=== PATIENT | female | born 1960 | race Caucasian/White ===

== ENCOUNTER 2021-03-24 05:46 | Day surgery (SDC) | payer OTHER ==
[~2021-03-24] VITALS: Ht 162.6 cm; Wt 97.7 kg
[2021-03-24] MEDS ORDERED: fentaNYL PF VIAL 100 MCG/2 ML VIAL IVP PRN ×2 (06:00)
[2021-03-24] MEDS ORDERED: PROCHLORPERAZINE 10 MG/2 ML VIAL. IVP PRN (06:00)
[2021-03-24] MEDS ORDERED: MORPHINE SULFATE 2 MG/ML INJ. IVP PRN (06:00)
[2021-03-24] MEDS ORDERED: IV RINGERS,LACTATED 1000ML 1,000 ML IV SCH (06:00)
[2021-03-24] MEDS ORDERED: HYDROmorphone 2 MG/ML INJ. IVP PRN (06:00)
[2021-03-24] MEDS ORDERED: MELA10TA2 PO (06:11)
[2021-03-24] MEDS ORDERED: PRAM1TAB PO (06:11)
[2021-03-24] MEDS ORDERED: fentaNYL PF VIAL 100 MCG/2 ML VIAL ONE ×2 (06:44→08:11)
[2021-03-24] MEDS ORDERED: PROPOFOL 10 MG/ML (20ML) VIAL. IV ONE (06:44)
[2021-03-24] MEDS ORDERED: SUCCINYLCHOLINE 200 MG/10 ML VIAL. ONE (06:46)
--- NOTE | 2021-03-24 07:14 | PDOC1 ---
History and Physical Date of Admission Date of Admission DATE: 03/24/21 TIME: 07:14 Identification/Chief Complaint Chief Complaint Bilateral medial foot pain Source Source: Patient History of Present Illness History of Present Illness Ms Mitchell is a 61-year-old female with no significant past medical history who comes to outpatient surgery for painful bilateral bunions bothering her for over a year. There is bilateral medial first MTP joints. 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 She is on her feet all day. Outpatient therapy has not helped and she comes in for definitive surgical treatment today. She is in no recent sick contacts or travel. Is fully vaccinated against COVID- 19 with the maternal vaccine and had a booster with Sun-eee vaccine recently. Past Medical History Cardiovascular: No pertinent hx Past Surgical History Past Surgical History Uterine ablation 2014. Right breast biopsy Family History Family History reviewed Family History: No Significant Social History Smoke: No ALCOHOL: none Drugs: None Current Medications Current Medications Current Medications Fentanyl Citrate (Fentanyl 2ml Vial) 25 mcg PRN Q5MIN PRN IVP MILD PAIN 1-3; Start 03/24/21 at 06:00; Stop 03/25/21 at 05:59 Fentanyl Citrate (Fentanyl 2ml Vial) 50 mcg PRN Q5MIN PRN IVP MODERATE PAIN 4- 6; Start 03/24/21 at 06:00; Stop 03/25/21 at 05:59 Morphine Sulfate (Morphine Sulfate) 1 mg PRN Q10MIN PRN IVP SEVERE PAIN 7-10; Start 03/24/21 at 06:00; Stop 03/25/21 at 05:59 Ringer's Solution 1,000 ml @ 30 mls/hr Q24H IV Last administered on 03/24/21at 06:31; Start 03/24/21 at 06:00; Stop 03/24/21 at 17:59 Hydromorphone HCl (Dilaudid) 0.5 mg PRN Q10MIN PRN IVP SEVERE PAIN 7-10, 2nd CHOICE; Start 03/24/21 at 06:00; Stop 03/25/21 at 05:59 Prochlorperazine Edisylate (Compazine) 5 mg PACU PRN PRN IVP NAUSEA, MRX1; Start 03/24/21 at 06:00; Stop 03/25/21 at 05:59 Cefazolin Sodium/ Dextrose 50 ml @ 100 mls/hr 1X PREOP PRN IV PRIOR TO PROCEDURE; Start 03/24/21 at 06:00; Stop 03/24/21 at 18:00 Propofol (Diprivan) 200 mg STK-MED ONCE IV ; Start 03/24/21 at 06:44; Stop 03/24/21 at 06:45; Status DC Fentanyl Citrate (Fentanyl 2ml Vial) 100 mcg STK-MED ONCE .ROUTE ; Start 03/24/21 at 06:44; Stop 03/24/21 at 06:45; Status DC Succinylcholine Chloride (Anectine) 200 mg STK-MED ONCE .ROUTE ; Start 03/24/21 at 06:46; Stop 03/24/21 at 06:46; Status DC Active Scripts Active Reported Melatonin 10 Mg Tab.mphase 1 Tab PO QHS 30 Days Pramipexole Dihydrochloride (Pramipexole Di-Hcl) 1 Mg Tablet 1 Mg PO DAILY Allergies Allergies: Coded Allergies: No Known Drug Allergies (Unverified , 03/19/21) ROS General: No: Chills, Night Sweats, Fatigue, Malaise, Appetite, Other PSYCHOLOGICAL ROS: No: Anxiety, Behavioral Disorder, Concentration difficultie, Decreased libido, Depression, Disorientation, Hallucinations, Hostility, Irritablity, Memory difficulties, Mood Swings, Obsessive thoughts, Physical abuse, Sexual abuse, Sleep disturbances, Suicidal ideation, Other Eyes: No Blurry vision, No Decreased vision, No Double vision, No Dry eyes, No Excessive tearing, No Eye Pain, No Itchy Eyes, No Loss of vision, No Photophobia, No Scotomata, No Uses contacts, No Uses glasses, No Other HEENT: No: Heacaches, Visual Changes, Hearing change, Nasal congestion, Nasal discharge, Oral lesions, Sinus pain, Sore Throat, Epistaxis, Sneezing, Snoring, Tinnitus, Vertigo, Vocal changes, Other ALLERGY AND IMMUNOLOGY: No: Hives, Insect Bite Sensitivity, Itchy/Watery Eyes, Nasal Congestion, Post Nasal Drip, Seasonal Allergies, Other Hematological and Lymphatic: No: Bleeding Problems, Blood Clots, Blood Transfusions, Brusing, Night Sweats, Pallor, Swollen Lymph Nodes, Other ENDOCRINE: No: Breast Changes, Galactorrhea, Hair Pattern Changes, Hot Flashes, Malaise/lethargy, Mood Swings, Palpitations, Polydipsia/polyuria, Skin Changes, Temperature Intolerance, Unexpected Weight Changes, Other Breast: No New/Changing Breast Lumps, No Nipple changes, No Nipple discharge, No Other Respiratory: No: Cough, Hemoptysis, Orthopnea, Pleuritic Pain, Shortness of breath, SOB with excertion, Sputum Changes, Stridor, Tachypnea, Wheezing, Other Cardiovascular: No Chest Pain, No Palpitations, No Orthopnea, No Paroxysmal Noc. Dyspnea, No Edema, No Lt Headedness, No Other Gastrointestinal: No Nausea, No Vomiting, No Abdominal Pain, No Diarrhea, No Constipation, No Melena, No Hematochezia, No Other Genitourinary: No Dysuria, No Frequency, No Incontinence, No Hematuria, No Retention, No Discharge, No Urgency, No Pain, No Flank Pain, No Other, No , No , No , No , No , No , No Musculoskeletal: Yes Gait Disturbance, Yes Joint Pain, Yes Joint Stiffness; No Joint Swelling, No Muscle Pain, No Muscular Weakness, No Pain In:, No Swelling In:, No Other Neurological: No Behavorial Changes, No Bowel/Bladder ControlChng, No Confusion, No Dizziness, No Gait Disturbance, No Headaches, No Impaired Coord/balance, No Memory Loss, No Numbness/Tingling, No Seizures, No Speech Problems, No Tremors, No Visual Changes, No Weakness, No Other Skin: No Dry Skin, No Eczema, No Hair Changes, No Lumps, No Mole Changes, No Mottling, No Nail Changes, No Pruritus, No Rash, No Skin Lesion Changes, No Other, No Acne Physical Exam General: Alert, Oriented X3, Cooperative, No acute distress HEENT: Atraumatic, PERRLA, EOMI, Mucous membr. moist/pink Lungs: Clear to auscultation, Normal air movement Heart: S1S2, RRR, no thrills, no rubs, no gallops, no murmurs Abdomen: Normal bowel sounds, Soft, No tenderness, No hepatosplenomegaly, No masses Rectal Exam: not examined Extremities: No clubbing, No cyanosis, No edema, Normal pulses, No tenderness/swelling Skin: No rashes, No breakdown, No significant lesion Neuro: Normal gait, Normal speech, Strength at 5/5 X4 ext, Normal tone, Sensation intact, Cranial nerves 3-12 NL, Reflexes 2+ Psych/Mental Status: Mental status NL, Mood NL Vitals Vitals Vital Signs Date Time Temp Pulse Resp B/P (MAP) Pulse Ox O2 Delivery O2 Flow Rate FiO2 03/24/21 06:25 97.6 71 20 158/85 95 Room Air 97.6 Images Images 3 views the bilateral feet without comparison for bilateral foot pain. Images are taken with weightbearing. FINDINGS: There is no fracture, dislocation, or acute osseous abnormality of either foot. There is hallux valgus deformity of both feet, with bunions, slightly more prominent on the right, and there is mild degenerative change of the first metatarsophalangeal joints bilaterally. Small calcaneal bone spurs are seen bilaterally. Remaining joints and soft tissues are grossly unremarkable. IMPRESSION: 1. No acute osseous abnormality. VTE Prophylaxis Ordered VTE Prophylaxis Devices: Yes VTE Pharmacological Prophylaxi: No Assessment/Plan Assessment/Plan A/P: Bilateral bunions - painful right medial foot affecting her work for [employer]. No further testing prior to planned surgery Obesity -counseled on lifestyle modification. She has previously been on Adipex currently not on this. FEN - NPO PPX - scds FULL CODE Dispo -outpatient surgery okay for discharge per surgery. Call [phone] if further care or admission to the hospital is required Justifications for Admission Other Justification FABIEN WEIR MD Mar 24, 2021 07:14
[2021-03-24] MEDS ORDERED: BUPIVACAINE MPF 0.25% 30 ML VIAL. ONE (07:15)
[2021-03-24] MEDS ORDERED: GLYCOPYRROLATE 1 MG/5 ML VIAL. ONE (08:00)
[2021-03-24] MEDS ORDERED: ONDANSETRON PF 4 MG/2 ML VIAL. ONE (08:13)
[2021-03-24] MEDS ORDERED: DEXAMETHASONE SOD PHOS 4 MG/ML VIAL ONE (08:13)
[2021-03-24] MEDS ORDERED: LIDOCAINE 1% PF 5 ML VIAL. ONE (08:14)
[2021-03-24] MEDS ORDERED: DEXTROSE 50% 25 GM / 50ML DISP.SYRIN. IV PRN (10:00)
--- NOTE | 2021-03-24 10:03 | PDOC4 ---
OPERATIVE NOTE Date: Date: Mar 24, 2021 Pre-Op Diagnosis: Right bunion deformity without first metatarsal insufficiency There is moderate subchondral cyst and adaptive osseous proliferation limited to the dorsal medial metatarsal head. Otherwise, the first MTPJ space is open without significant circumferential periarticular osteophytes. Post-Op Diagnosis: Same as above Procedure Performed: Right distal bunionectomy, Wayne procedure through minimal invasive approach Surgeon: Vikram Lozada DPM Anesthesia Type: General Blood Loss: 20 cc Specimans Obtained: None Findings: Preoperatively, the first intermetatarsal angle was more than 16 degrees, there was lateral hallux subluxation abutting the second digit. The tibial sesamoid position was 5-6. Postoperatively, the first intermetatarsal angle was less than 8 degrees. The hallux was relatively parallel to the second digit. The tibial sesamoid was reduced to under 2. Complications: None Operative Note: Under mild sedation, patient was brought into the operating room and placed on the operative table in a supine position. A formal timeout was performed to confirm patient's identity, procedure and procedure site. Following IV antibiotics and general anesthesia, a well-padded right thigh tourniquet was applied. The right lower extremity was then prepped, scrubbed and draped using aseptic techniques. The tourniquet was inflated to 250 mmHg. Using intraoperative x-ray, a provisional osteotomy approximately 5 mm proximal to the sesamoids, aiming perpendicular to the second metatarsal shaft was marked. The central axial position of the first metatarsal and first TMT and first MTPJ were marked on lateral view. Then a 5 mm stab incision was made at the provisional osteotomy site on the lateral first metatarsal neck. The incision was carried deep to the periosteum layer with blunt dissection with care to protect the neurovascular bundles. Before osteotomy, the tourniquet was deflated. Then a 2 x 19.5 mm straight MIS bur was used to complete the osteotomy at the level of the first metatarsal neck aiming perpendicular to the second metatarsal shaft using intraoperative x-ray guidance. After the capital fragment was freed and mobilized, a jig was used to laterally translate the capital fragment to reduce the first metatarsal angle to under 8 degrees. Then using standard AO techniques, two 4.0 mm fully threaded screws were placed from the medial proximal first metatarsal shaft to the capital fragment with goals to capture bicortical at the proximal first metatarsal shaft. Care was taken to protect the soft tissue neurovascular bundles at the medial surface of the first metatarsal near the screw placement sites. Intraoperative x-ray noted adequate hardware position, length without violating the first MTPJ. On the lateral view, the hardware was central to the first metatarsal shaft. At this time, intraoperative exam remarked slight overlap between the hallux and second digit and then the decision was made to perform an Wayne osteotomy. Then a 5 mm stab incision was made at the medial surface of the proximal hallux. The incision was carried deep using blunt dissection to the periosteum layer. Then a 2.0 x 13 mm straight bur was used to complete the osteotomy aiming towards the lateral base of proximal hallux while preserving the lateral hinge. A small medially based wedge was removed and easy osteotomy apposition and reduction of the deformity was noted with 2 finger manipulation technique. Then using standard AO technique, a 3.0 millimeter screw was used to affix the osteotomy site. Intraoperative x-ray noted adequate hardware placement, position, reduction of the DASA deformity. All the surgical sites were irrigated with copious saline solution. The surgical sites were closed with 4 Monocryl and 4-0 nylon. 12 cc of 0.25% Marcaine plain was used to augment postoperative anesthesia to the first ray. At the surgical sites were dressed with Xeroform, 4 x 4, Kerlix, ABD and Anastacio bandage. Adequate digital perfusion was noted after surgery. Patient tolerated the procedure and anesthesia well with vital signs stable and neurovascular status intact. Patient was then transferred to PACU for continuous recovery. Pending surgical foot x-ray 3 view. VIKRAM LOZADA DPM Mar 24, 2021 10:03
[2021-03-24] MEDS ORDERED: HYDR-2759 PO (10:15)
[2021-03-24] MEDS ORDERED: GABA100C6 PO (10:16)
[2021-03-24] MEDS ORDERED: ACET500T68 PO (10:18)
[2021-03-24] MEDS ORDERED: IBUP-985 PO (10:19)
[2021-03-24] MEDS ORDERED: ASPI-630 PO (10:20)
--- NOTE | 2021-03-24 10:27 | RAD ---
Three-view right foot dated 03/24/2021. COMPARISON: None. INDICATION: Post bunionectomy. FINDINGS: 3 views obtained. Interval osteotomy of the distal first metatarsal with 2 stabilizing screws. There is also been osteotomy at the base of the first proximal phalanx with stabilizing screw. Mild angulat ion at the distal first metatarsal with overlying soft tissue swelling. Mild degenerative change of t he first MTP joint. Osseous structures otherwise intact. IMPRESSION: Postsurgical changes as described. Electronically signed by: Winston Hutchinson MD (03/24/2021 10:24 AM) [id number]
[2021-03-24] MEDS ORDERED: ACETAMINOPHEN 325 MG TABLET. PO ONE (10:30)
[2021-03-24] MEDS ORDERED: oxyCODONE/APAP 5/325 1 TAB TABLET PO ONE (10:30)
[2021-03-24] MEDS ORDERED: GABAPENTIN 100 MG CAPSULE. PO ONE (10:30)
[2021-03-24 11:00] VITALS: BP 158/100
== END 2021-03-24 11:21 | disposition home or self-care (01) ==
LOC: SURG 05:46
PROVIDERS: ATTEND Podiatrist
DX: M21.611 Bunion of right foot (principal); M20.11 Hallux valgus (acquired), right foot; Z79.82 Long term (current) use of aspirin; Z79.899 Other long term (current) drug therapy; Z98.890 Other specified postprocedural states; Z72.89 Other problems related to lifestyle
CPT/HCPCS: 28296; 28298; 28299; 73630; A4930; A6223; A6253; A6402; A6450; C1713; J0330; J0690; J1100; J2405; J2704; J3010; J3490; A4657; A6443